=== PATIENT | male | born 1945 | race American Indian/Alaskan Native ===

== ENCOUNTER 2018-03-01 07:08 | Day surgery (SDC) | payer MEDICARE ==
[2018-02-28 16:13] VITALS: BMI 27.7
--- NOTE | 2018-03-01 07:18 | CP.PCM.CON ---
History of Present Illness - History of Present Illness History of Present Illness: Orthopedic consult Past Patient History - Past Medical History & Family History Past Medical History?: Yes - CARDIAC Hx Cardiac Disorders: Yes Hx Hypertension: Yes - PULMONARY Hx Respiratory Disorders: Yes Hx Bronchitis: Yes - NEUROLOGICAL Hx Neurological Disorder: No - HEENT Hx HEENT Problems: No - RENAL Hx Chronic Kidney Disease: No - ENDOCRINE/METABOLIC Hx Endocrine Disorders: No - HEMATOLOGICAL/ONCOLOGICAL Hx Blood Disorders: No - INTEGUMENTARY Hx Dermatological Problems: No - MUSCULOSKELETAL/RHEUMATOLOGICAL Hx Musculoskeletal Disorders: Yes Hx Back Pain: Yes Hx Herniated Disk: Yes - GASTROINTESTINAL Hx Gastrointestinal Disorders: No - GENITOURINARY/GYNECOLOGICAL Hx Genitourinary Disorders: Yes Hx Prostate Problems: Yes - PSYCHIATRIC Hx Psychophysiologic Disorder: No - SURGICAL HISTORY Hx Surgeries: Yes Hx Joint Replacement: Yes (Left knee replacement 13 years ago) Other/Comment: Arthroscopy right knee 20 years ago - ANESTHESIA Hx Anesthesia: Yes Hx Anesthesia Reactions: No Hx Malignant Hyperthermia: No Has any member of the family had a problem w/ anesthesia?: No Meds Allergies/Adverse Reactions: Allergies Allergy/AdvReac Type Severity Reaction Status Date / Time salmon Allergy Severe RASH Uncoded 02/28/18 16:17 Assessment & Plan - Date & Time Date: 03/01/18 Time: 07:18
[2018-03-01 07:54] LABS: BASO % 0.8 % (0.0-2.0); EOS % 0.7 % (0.0-4.0); HEMOGLOBIN 13.4 g/dL (12.0-18.0); LYMPH # 1.7 K/uL (1.0-4.3); LYMPH % 30.6 % (20.0-40.0); MEAN CELL VOLUME 85.9 fl (80.0-94.0); MEAN CORPUSCULAR HEMOGLOBIN 29.2 pg (27.0-31.0); MEAN PLATELET VOLUME 7.5 fl (7.2-11.7); MONO # 0.5 K/uL (0.0-0.8); MONO % 9.6 % (0.0-10.0); NEUT # 3.2 K/uL (1.8-7.0); NEUT % 58.3 % (50.0-75.0); NRBC % 0.3 % (0.0-0.0); RBC 4.58 Mil/uL (4.40-5.90); RED CELL DISTRIBUTION WIDTH 14.4 % (11.5-14.5); WHITE BLOOD COUNT 5.4 K/uL (4.8-10.8)
[2018-03-01] MEDS ORDERED: Bupivacaine HCl 0.25% PF (30 ml) Inj ONE (09:27)
[2018-03-01] MEDS ORDERED: ceFAZolin IV 1 gm in Dextrose 1 GM/50 ML BAG IVPB ONE (09:27)
[2018-03-01] MEDS ORDERED: Bacitracin Ointment 30 GM TUBE ONE (09:28)
[2018-03-01] MEDS ORDERED: Iohexol 300 100 ML IJ ONE (09:28)
--- NOTE | 2018-03-01 09:37 | CP.SDSHP ---
Same Day Surgery H & P - History Proposed Procedure: Left knee aspiration arthrogram under anesthesia Pre-Op Diagnosis: Left painful total knee prosthesis - Previous Medical/Surgical History Cardiac: Hypertension Comments: Hyperlipidemia Previous Surgical History: L TKR 2006 - Allergies Allergies: Allergies salmon Allergy (Severe, Uncoded 02/28/18 16:17) RASH eyes and throat closes - Current Medications Current Medications: amlodipine, crestor - Physical Exam General Appearance: NAD Vital Signs: T=96.8 P=106 RR=18 B/P=138/77 [id number] Mental Status: Alert & Oriented x3 Neuro: WNL Heart: WNL Lungs: WNL GI: WNL - {Optional Preform as Required} Abdomen: WNL Integument: WNL Ortho: Other (LLE: old TKR scars well healed, ROM 0-100deg, no tenderness, mod swelling and effusion, gross NVI distally, motor intact EHL/FHL/TA/G) ENT: WNL - Impression Impression: Patient is a 72 y/o male with L painful knee prosthesis who presents for elective aspiration arthrogram. Risks/benefits and alternatives were explained to the patient who expresses understanding and agrees to proceed with above procedure. Pt. Evaluated Today:Candidate for Anesthesia & Procedure: Yes - Date & Time Date: 03/01/18 Time: 07:30 Short Stay Discharge - Short Stay Discharge Admitting Diagnosis/Reason for Visit: M25.662/M25.562 Disposition: HOME/ ROUTINE Referrals: Dmitry Arroyo III, MD [Primary Care Provider] -
[2018-03-01] MEDS ORDERED: Rocuronium 10 mg/ml (5 ml) ONE (09:54)
[2018-03-01] MEDS ORDERED: Propofol 10 mg/ml Inj (20 ML) ONE (09:54)
[2018-03-01] MEDS ORDERED: Etomidate 20 mg/10ml Inj IV ONE (09:55)
[2018-03-01] MEDS ORDERED: Phenylephrine 10 mg/ml Inj ONE (09:55)
[2018-03-01] MEDS ORDERED: Albuterol HFA 90 mcg/actuation (8 g) ONE (09:55)
[2018-03-01] MEDS ORDERED: Lidocaine 4% (Laryng-O-Jet) Kit MM ONE (09:55)
[2018-03-01] MEDS ORDERED: Succinylcholine 200 mg/10 ml Inj IV ONE (09:55)
[2018-03-01] MEDS ORDERED: ePHEDrine 50 mg/ml Inj ONE (10:54)
[2018-03-01] MEDS ORDERED: Neostigmine 1:1000 (1 mg/ml) Inj ONE (11:14)
[2018-03-01] MEDS ORDERED: Lactated Ringer's 1,000 ML IV ONE (11:20)
[2018-03-01] MEDS ORDERED: Oxycodone/Acetaminophen 5/325 mg Tab PO PRN (11:27)
[2018-03-01] MEDS ORDERED: Lactated Ringer's 1,000 ML IV SCH ×2 (11:30→11:45)
[2018-03-01 11:38] LABS: FLUID TYPE SYNOVIAL FLUID
--- NOTE | 2018-03-01 11:41 | PCM.SURG1 ---
Surgeon's Initial Post Op Note - Surgeon's Notes Surgeon: Cruz Beauty Therapist: Marcelo orellana Type of Anesthesia: General Endo Anesthesia Administered By: DR Carbajal Pre-Operative Diagnosis: "locking"(according to pt- not reproducible in office) L Revision Left TKR. primary complaint not pain/swelling Operative Findings: NO EVIDENCE FOR LOCKING L TKR. NO EVIDENCE FOR SEPSIS L TKR Post-Operative Diagnosis: Normal revision L TKR. no evidence for sepsis. no evdince for mechanical locking, instability (in either A/P or lateral plane) Operation Performed: Aspiartion arthrogram L Revision L TKR. Manipulation l knee under anaesthesia./ fluoroscopy. psoitioning of fluoro/interpetation of video images Specimen/Specimens Removed: synovial fluid/ Estimated Blood Loss: EBL {In ML}: 0 Blood Products Given: N/A Drains Used: No Drains Post-Op Condition: Good Date of Surgery/Procedure: 03/01/18 Time of Surgery/Procedure: 11:05 (time in room 1030)
[2018-03-01 12:04] LABS: SF GROSS APPEARANCE CLEAR (CLEAR); SYNOVIAL FLUID COMMENT MUCOID
[2018-03-01 12:05] LABS: FLUID TYPE SYNOVIAL FLUID; SF GROSS APPEARANCE CLEAR (CLEAR); SYNOVIAL FLUID COMMENT MUCOID
[2018-03-01 12:14] LABS: SYNOVIAL FLUID MONO/MACROPHAGE 9 % (0-0)
[2018-03-01 13:45] LABS: SYNOVIAL FLUID MONO/MACROPHAGE 3 % (0-0)
[2018-03-01 13:52] VITALS: BP 133/71; PULSE 85; RESP 20; TEMP 97.3; O2SAT 95
--- NOTE | 2018-03-01 16:36 | OP ---
Copied To: Dmitry Arroyo MD Attending MD: Dmitry Arroyo MD PROCEDURE DATE: 03/01/2018 PREOPERATIVE DIAGNOSIS: Supposed locking of the left total knee replacement arthroplasty. The symptoms cannot be reproduced in the office. POSTOPERATIVE DIAGNOSES: 1. No evidence of mechanical locking of the left revision total knee replacement. 2. No evidence of deep sepsis. OPERATIVE FINDINGS: 1. No evidence of deep sepsis after aspiration arthrogram. An aliquot of synovial fluid was sent to the lab for aerobic, anaerobic, AFB and fungal cultures and number of white cells per high-power field. 2. No evidence of mechanical locking, no evidence of instability. Evaluation and manipulation of the knee was accomplished under fluoroscopy and anesthesia. OPERATIVE PROCEDURES: 1. Aspiration arthrogram of the left knee. 2. Evaluation and manipulation of left knee under anesthesia and fluoroscopy. 3. Positioning of fluoroscope and interpretation of video images. SURGEON: Dmitry Arroyo MD SUGAR DRIER: Marcelo Coronado PA-C. SPECIMENS REMOVED: Synovial fluid. BLOOD LOSS: Essentially zero. BLOOD PRODUCTS: No blood products given. DRAINS: No drains. POSTOPERATIVE CONDITION: Stable. TIME OF SURGERY: 11:05 procedure time, time in the room 10:30. OPERATIVE INDICATION: Cliff Astudillo is a 72-year-old gentleman, well known to my practice, who approximately 13 years ago underwent successful revision of left total knee replacement arthroplasty. The patient has been complaining of locking of the knee and so-called seizing up. He has not been complaining of pain. He actually ambulates into the office in the last office visit very comfortably. Diagnostic testing including plantar x-rays, bone scan and MRI examination with [facility] protocol have been consistently negative. Physical examination has been negative. The patient was admitted at this point in time to under anesthesia evaluate the knee and to rule out any reproducible instability or locking. OPERATIVE PROCEDURE: After having obtained informed consent, after thoroughly discussing the pros, cons, risks and benefits of this aspiration arthrogram and evaluation under anesthesia procedure, the possibility of mechanical failure, infection, thromboembolic disease, possibility of secondary or tertiary surgery was discussed. The patient can no longer withstand the discomfort and wished the surgery to be accomplished. After having obtained informed consent, after having identified the side, site and procedure and a critical pause/time-out after the satisfactory induction of the anesthetic, the patient identified as Cliff Wilda in the supine position with all bony prominences well padded. The left lower extremity was prepped and free draped in usual fashion for lower extremity surgery. Under the surgeon's direction, the fluoroscope was positioned, video images were generated, therapeutic decisions were made therefrom. This having been accomplished, the knee was evaluated under AP and lateral image intensification views. This having been accomplished, the knee was manipulated from full extension to flexion. Flexion was acceptable to about 113 degrees. Extension is full. Verification of position on AP and lateral image intensification views was noted. An anterior drawer was placed and two separate lateral views of the knee are obtained. There was absolutely no evidence for instability. Verification of position on AP and lateral views was confirmed. At this point in time, the spinal needle was placed in a superolateral portal and 10 mL of synovial fluid were removed and sent to the lab for stat Gram stain, number of white cells per high-power field. There was no evidence of bacteria. There were less than 3 white cells per high-power field. This having been accomplished, 30 mL of radiopaque contrast mixed with saline are introduced into the joint. Flexion and extension was accomplished. Again verification of position was offered on AP and lateral image intensification views. To my reading, there was no evidence of gross sepsis or loosening. There was no evidence of instability. The radiopaque contrast was removed and sent to the lab for aerobic, anaerobic, AFB and fungal cultures, and number of white cells per high-power field. The injection portals were closed with interrupted 4-0 nylon. Javed Suazo dressing was applied. Dmitry Arroyo MD
--- NOTE | 2018-03-02 11:48 | RAD ---
Date of service: 03/01/2018 PROCEDURE: Intraoperative Fluoroscopy. HISTORY: LEFT KNEE FINDINGS: Fluoroscopic assistance was provided. Fluoroscopy time = 35.2 seconds. Radiation dose = 1.42 mGy Please refer to the operative report from DANITA Ramirez.
== END 2018-03-01 14:50 | disposition home or self-care (01) ==
LOC: H.OPSURG 07:08
PROVIDERS: ATTEND Orthopaedic Surgery
DX: T84.84XA Pain due to internal orthopedic prosthetic devices, implants and grafts, initial encounter (principal); Z96.652 Presence of left artificial knee joint; Y83.8 Other surgical procedures as the cause of abnormal reaction of the patient, or of later complication, without mention of misadventure at the time of the procedure; I10 Essential (primary) hypertension; E78.5 Hyperlipidemia, unspecified
CPT/HCPCS: 20610; 27570; 36415; 85025; 86850; 86900; 87015; 87070; 87075; 87101; 87116; 87206; 89051; J0330; J0690; J1885; J2001; J2370; J2405; J2704; J2710; J3010; J7030; J7120; Q9967